=== PATIENT | female | born 1970 | race Caucasian/White ===

== ENCOUNTER → 2017-04-10 | Outpatient (CLI) | payer BC ==
[~2017-04-10] MED LIST: IOHEXOL 300 MG/ML 75 ML VIAL. IV ONE
--- NOTE | 2017-04-10 11:01 | RAD ---
Exam performed: CT soft tissues neck with contrast. History: Generalized Left neck swelling. Date of service: 04/10/17. Comparison: None available. Technique: Contiguous helical acquisitions are obtained through the soft tissues of the neck during intravenous administration of 75 cc of Omnipaque 300. Sagittal and coronal reformatted images are obtained and reviewed. Findings: Mildly enlarged lymph nodes are seen in both sides of the neck, the largest lymph node on the left measures measures 1.3 x 0.9 cm. The remainder lymph nodes are subcentimeter no additional mass lesion or fluid collection is seen. The visualized portion of the brain appears normal. The paranasal sinuses are clear. The orbits are symmetric and unremarkable. The airway is preserved. Bilateral parotid and submandibular salivary glands appear normal. The neck vessels appear unremarkable. Both lobes of the thyroid gland are normal. The lung apices are clear. Impression: Mildly prominent lymph nodes in both sides of the neck with dominant 1.3 cm lymph node in the left neck. These may be followed up clinically. If symptoms persist, ultrasound follow-up may be obtained. PQRS Compliance Statement: One or more of the following individualized dose reduction techniques were utilized for this examination: 1. Automated exposure control 2. Adjustment of the mA and/or kV according to patient size 3. Use of iterative reconstruction technique.
== END | disposition home or self-care (01) ==
LOC: CT 09:42
PROVIDERS: ATTEND Physician Assistant
DX: R59.0 Localized enlarged lymph nodes (principal)
CPT/HCPCS: 70491; Q9967

== ENCOUNTER → 2019-05-16 | Outpatient (CLI) | payer BC ==
--- NOTE | 2019-05-16 10:30 | RAD ---
Right upper extremity venous doppler ultrasound History: Right arm and hand swelling and pain Comparison: None Findings: Multiple grayscale, color, and duplex spectral analysis sonographic images were acquired of the right upper extremity veins to evaluate for the presence of DVT. Interrogated right upper extremity veins are patent with normal color flow and phasicity. No thrombus is demonstrated. Ulnar and radial veins are poorly visualized on this exam. Impression: 1. Visualized interrogated right upper extremity veins are patent, radial and ulnar veins poorly visualized. Electronically signed by: Carroll Samaniego MD (05/16/2019 10:27 AM) [id number]
== END | disposition home or self-care (01) ==
LOC: US 09:43
PROVIDERS: ATTEND Physician Assistant
DX: M79.641 Pain in right hand (principal); R60.0 Localized edema
CPT/HCPCS: 93971

== ENCOUNTER → 2019-05-31 | Outpatient (CLI) | payer BC ==
[~2019-05-31] MED LIST changes: -IOHEXOL 300 MG/ML 75 ML VIAL. IV ONE; +IOHEXOL 350 MG/ML 100 ML VIAL. IV ONE
--- NOTE | 2019-05-31 11:28 | RAD ---
PQRS Compliance Statement: One or more of the following individualized dose reduction techniques were utilized for this examination: 1. Automated exposure control 2. Adjustment of the mA and/or kV according to patient size 3. Use of iterative reconstruction technique CT CHEST WITH CONTRAST, PULMONARY ANGIOGRAM History: Right arm pain and swelling. Chest pain. Comparison: None. Technique: Helical CT of the chest was performed after the administration of 100 cc of Omnipaque 300 intravenous contrast according to PE protocol. Axial and coronal reconstructions were obtained. 3-D MIP images were constructed to better evaluate the pulmonary arteries. Findings: Pulmonary arteries are adequately opacified. There is no evidence of pulmonary embolism. There is no thoracic aortic dissection. Cardiac size is normal, no pericardial effusion. No hilar or mediastinal adenopathy. There is right axillary adenopathy. There are a few benign appearing left axillary lymph nodes. No focal abnormality of the breasts is identified by CT. There is no pleural effusion. The central airways are patent. There are relatively diffuse groundglass opacities in the lungs with mosaic attenuation pattern. There is no consolidation. No interlobular septal thickening is identified. Visualized upper abdomen is unremarkable. There is no acute bone abnormality. IMPRESSION: 1. There is no CT evidence of pulmonary embolus. 2. Right axillary adenopathy. No focal abnormality of the breasts is identified by CT. Recommend outpatient bilateral diagnostic mammogram and right axillary ultrasound. 3. There are diffuse groundglass opacities in the lungs with mosaic attenuation pattern. Considerations include small airways disease, nonspecific pneumonitis, or alveolar edema. Electronically signed by: Santiago Hernandez MD (05/31/2019 11:25 AM) [id number]
== END | disposition home or self-care (01) ==
LOC: CT 10:25
PROVIDERS: ATTEND Physician Assistant
DX: R91.8 Other nonspecific abnormal finding of lung field (principal); R59.0 Localized enlarged lymph nodes; M79.601 Pain in right arm; M79.641 Pain in right hand; R68.89 Other general symptoms and signs; R07.9 Chest pain, unspecified; I10 Essential (primary) hypertension
CPT/HCPCS: 71275; Q9967

== ENCOUNTER 2022-01-26 12:17 | Emergency (ER) | payer OTHER, BC ==
[~2022-01-26] VITALS: Ht 160 cm; Wt 90.9 kg
[2022-01-26 12:28] VITALS: BP 125/81
--- NOTE | 2022-01-26 13:46 | RAD ---
Three-view right foot dated 01/26/2022. No comparison available. CLINICAL INDICATION: Pain. FINDINGS: 3 views right foot show normal bony alignment. No displaced fracture. No periostitis or bone destruct ion. No acute osseous or articular abnormality. Mild degenerative change of the first MTP joint. No a cute osseous or articular abnormality. No periostitis or bone destruction. IMPRESSION: No acute radiographic abnormality. Electronically signed by: Jameson Arteaga MD (01/26/2022 1:43 PM) [id number]
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
== END 2022-01-26 14:01 | disposition home or self-care (01) ==
LOC: ER 12:17
DX: S90.31XA Contusion of right foot, initial encounter (principal); S20.20XA Contusion of thorax, unspecified, initial encounter; E78.00 Pure hypercholesterolemia, unspecified; I10 Essential (primary) hypertension; V49.59XA Passenger injured in collision with other motor vehicles in traffic accident, initial encounter; Y93.89 Activity, other specified; Y92.89 Other specified places as the place of occurrence of the external cause; Y99.8 Other external cause status
CPT/HCPCS: 73630; 99283